=== PATIENT | female | born 1960 | race Caucasian/White ===

== ENCOUNTER 2017-08-21 01:50 | Emergency (ER) | payer BC, MEDICAID ==
[~2017-08-21] VITALS: Ht 157.5 cm; Wt 83.0 kg
[2017-08-21] MEDS ORDERED: ONDANSETRON HCL/PF 4 MG/2 ML VIAL ONE (02:24)
[2017-08-21] MEDS ORDERED: MORPHINE SULFATE INJ 4 MG/ML DISP.SYRIN ONE (02:24)
[2017-08-21 02:29] LABS: BASOPHILS # (AUTO) 0.2 /CMM (0.0-0.2); BASOPHILS % (AUTO) 1.1 % (0.0-2.0); EOSINOPHILS % (AUTO) 0.3 % (0.0-6.0); HEMATOCRIT 38 % (33-45); HEMOGLOBIN 13.2 g/dL (11.5-14.8); LYMPHOCYTES # (AUTO) 3.1 /CMM (0.8-4.8); LYMPHOCYTES % (AUTO) 17.9 % (20.0-44.0); MEAN CORPUSCULAR HGB CONC 34 g/dl (31.0-36.0); MEAN CORPUSCULAR VOLUME 85 fL (82-100); MONOCYTES # (AUTO) 1.1 /CMM (0.1-1.30); MONOCYTES % (AUTO) 6.1 % (2.0-12.0); NEUTROPHILS # (AUTO) 13.1 /CMM (1.8-8.9); NEUTROPHILS % (AUTO) 74.6 % (43.0-81.0); PLATELET COUNT (AUTO) 112 /CMM (150-450); WHITE BLOOD COUNT (AUTO) 17.5 K/uL (4.3-11.0)
[2017-08-21] MEDS ORDERED: ONDANSETRON HCL/PF 4 MG/2 ML VIAL IVP ONE (02:30)
[2017-08-21] MEDS ORDERED: IV NS 0.9% 1,000 ML BAG IV ONE (02:30)
[2017-08-21] MEDS ORDERED: MORPHINE SULFATE INJ 2 MG/ML DISP.SYRIN IV ONE (02:30)
[2017-08-21 02:38] LABS: CALCIUM, SERUM 9.6 mg/dL (8.5-10.1); CARBON DIOXIDE 20 mmol/L (21-32); CHLORIDE 99 mmol/L (98-107); CREATININE 1.7 mg/dL (0.6-1.3); GLUCOSE 253 mg/dL (74-106); POTASSIUM 3.8 mmol/L (3.5-5.1); SODIUM SERUM 136 mmol/L (136-145); UREA NITROGEN, BLOOD 32 mg/dL (7-18)
[2017-08-21 02:40] LABS: INR 0.96 (0.87-1.13)
[2017-08-21 02:43] LABS: ALANINE AMINOTRANSFERASE 52 U/L (12-78); ALBUMIN 4.4 g/dL (3.4-5.0); ALKALINE PHOSPHATASE 117 U/L (46-116); ASPARTATE AMINOTRANSFERASE 32 U/L (15-37); BILIRUBIN,DIRECT 0.1 mg/dL (0.0-0.2); BILIRUBIN,TOTAL 0.3 mg/dL (0.2-1.0); LIPASE 165 U/L (73-393); TOTAL PROTEIN, SERUM 8.2 g/dL (6.4-8.2)
[2017-08-21 03:01] LABS: TROPONIN I < 0.017 ng/mL (0.00-0.056)
--- NOTE | 2017-08-21 03:59 | NUR ---
URINE COLLECTED. CALLED LAB FOR TRAVEL SALES CONSULTANT.
[2017-08-21 04:12] LABS: APPEARANCE,URINE CLEAR (CLEAR); BILIRUBIN,URINE 1+ (NEGATIVE); BLOOD, URINE NEGATIVE Ery/uL (NEGATIVE); COLOR,URINE YELLOW (YELLOW); KETONES,URINE NEGATIVE (NEGATIVE); LEUKOCYTE ESTERASE ,URINE TRACE (NEGATIVE); NITRITE, URINE NEGATIVE (NEGATIVE); PROTEIN,URINE 1+ mg/dl (NEGATIVE); UGLUCOSE NEGATIVE (NEGATIVE); UROBILINOGEN,URINE 0.2 EU/dL (0.2)
--- NOTE | 2017-08-21 04:12 | NUR ---
Patient is resting comfortably in bed with eyes closed. Easily aroused. VSS
[2017-08-21 04:18] LABS: BACTERIA,URINE Many /HPF (None Seen); HYALINE CASTS, URINE Few /LPF (None Seen); RBC,URINE 0-2 /HPF (0-2); SQUAMOUS EPITHELIAL CELL,UR Moderate /HPF (None Seen); WBC,URINE 21-50 /HPF (0-3)
--- NOTE | 2017-08-21 05:49 | NUR ---
IV removed. Catheter intact and site benign. Pressure and 4x4 applied to site. No bleeding noted. Patient discharged to home in stable condition. Written and verbal after care instructions given. Patient verbalizes understanding of instruction. ambulatory with a steady gait. instructed pt not drive. pt verbalize understanding.
[2017-08-21 05:54] VITALS: BP 94/65
== END 2017-08-21 05:54 | disposition home or self-care (01) ==
LOC: ER 01:54
DX: K80.80 Other cholelithiasis without obstruction (principal); I10 Essential (primary) hypertension; E11.9 Type 2 diabetes mellitus without complications; Z88.6 Allergy status to analgesic agent
CPT/HCPCS: 36415; 71045-TC; 80048-TC; 80076-TC; 81000-TC; 83690-TC; 84484-TC; 85025-TC; 85730-TC; 87086-TC; A4606; J2270; J2405; J7030; Z7610

== ENCOUNTER 2018-05-28 21:32 | Emergency (ER) | payer BC ==
[~2018-05-28] VITALS: Ht 157.5 cm; Wt 88.5 kg
--- NOTE | 2018-05-28 22:00 | NUR ---
PT BIBSELF C/O COUGH X1 DAY. PT STATES SHE HAS BEEN FEELING WEAK X1 WEEK. DENIES SOB, CHEST PAIN, FEVER. PT AAOX4. RESPIRATIONS EVEN AND UNLABORED. SKIN WARM AND INTACT NO ACUTE DISTRESS NOTED
[2018-05-28] MEDS ORDERED: ACETAMINOPHEN 325 MG TABLET ONE (23:22)
[2018-05-28] MEDS ORDERED: ACETAMINOPHEN 650 MG/20.3 ML UDC PO ONE (23:30)
--- NOTE | 2018-05-29 00:25 | NUR ---
Patient discharged to home in stable condition. Written and verbal after care instructions given. Patient verbalizes understanding of instruction. Pt ambulatory with a steady gait
[2018-05-29 00:30] VITALS: BP 100/67
== END 2018-05-29 00:31 | disposition home or self-care (01) ==
LOC: ER 21:35
DX: B34.9 Viral infection, unspecified (principal); I10 Essential (primary) hypertension; E11.9 Type 2 diabetes mellitus without complications; Z90.710 Acquired absence of both cervix and uterus; Z90.89 Acquired absence of other organs; Z98.890 Other specified postprocedural states; Z90.12 Acquired absence of left breast and nipple; Z85.3 Personal history of malignant neoplasm of breast; Z88.6 Allergy status to analgesic agent
CPT/HCPCS: 87400

== ENCOUNTER 2020-02-25 15:05 | Inpatient (IN) | payer MEDICARE, BC, OTHER ==
[~2020-02-25] VITALS: Ht 157.5 cm; Wt 94.8 kg
--- NOTE | 2020-02-25 15:09 | NUR ---
[id number], from home, c/o left flank pain since this morning, non radiating, 03/03 PS. to ER bed 09, hooked to secured entrance monitor, BP cuff and POX, changed to hosp gown, warm blanket provided, patient AAO x 4, breathing even and unlabored, NAD noted. awaiting MD wasserman.
--- NOTE | 2020-02-25 15:18 | NUR ---
DR LEIGH AT BEDSIDE
[2020-02-25] MEDS ORDERED: ONDANSETRON HCL/PF 4 MG/2 ML VIAL IVP ONE (15:30)
[2020-02-25] MEDS ORDERED: MORPHINE SULFATE INJ 2 MG/ML DISP.SYRIN IV ONE (15:30)
[2020-02-25] MEDS ORDERED: IV NS 0.9% 500 ML BAG IV ONE (15:30)
[2020-02-25] MEDS ORDERED: ONDANSETRON HCL/PF 4 MG/2 ML VIAL ONE (15:57)
[2020-02-25] MEDS ORDERED: MORPHINE SULFATE INJ 4 MG/ML DISP.SYRIN ONE (15:57)
[2020-02-25] MEDS ORDERED: HYDROMORPHONE 1 MG/1 ML DISP.SYRIN ONE (16:08)
[2020-02-25 16:17] LABS: BASOPHILS # (AUTO) 0.1 /CMM (0.0-0.2); BASOPHILS % (AUTO) 0.9 % (0.0-2.0); EOSINOPHILS % (AUTO) 0.4 % (0.0-6.0); HEMATOCRIT 40 % (33-45); HEMOGLOBIN 13.1 g/dL (11.5-14.8); LYMPHOCYTES # (AUTO) 1.7 /CMM (0.8-4.8); LYMPHOCYTES % (AUTO) 23.9 % (20.0-44.0); MEAN CORPUSCULAR HGB CONC 33 g/dl (31.0-36.0); MEAN CORPUSCULAR VOLUME 97 fL (82-100); MONOCYTES # (AUTO) 0.5 /CMM (0.1-1.30); MONOCYTES % (AUTO) 6.6 % (2.0-12.0); NEUTROPHILS # (AUTO) 4.9 /CMM (1.8-8.9); NEUTROPHILS % (AUTO) 68.2 % (43.0-81.0); PLATELET COUNT (AUTO) 392 /CMM (150-450); WHITE BLOOD COUNT (AUTO) 7.3 K/uL (4.3-11.0)
[2020-02-25] MEDS ORDERED: HYDROMORPHONE 1 MG/1 ML DISP.SYRIN IV ONE (16:30)
[2020-02-25 16:36] LABS: ALBUMIN 1.9 g/dL (3.4-5.0); BILIRUBIN,DIRECT 0.2 mg/dL (0.0-0.2); BILIRUBIN,TOTAL 0.4 mg/dL (0.2-1.0); CALCIUM, SERUM 7.6 mg/dL (8.5-10.1); CREATININE 0.9 mg/dL (0.6-1.3); TOTAL PROTEIN, SERUM 6.4 g/dL (6.4-8.2)
[2020-02-25 16:37] LABS: POTASSIUM 2.4 mmol/L (3.5-5.1)
[2020-02-25] MEDS ORDERED: OMEG1CAP PO (16:42)
[2020-02-25] MEDS ORDERED: FURO-145 PO (16:42)
[2020-02-25] MEDS ORDERED: CLOP75TA15 PO (16:42)
[2020-02-25] MEDS ORDERED: LEVE500T9 PO (16:42)
[2020-02-25] MEDS ORDERED: VENL37.55 PO (16:42)
[2020-02-25] MEDS ORDERED: INSU100I26 SQ (16:42)
[2020-02-25] MEDS ORDERED: ATOR20TA PO (16:42)
[2020-02-25] MEDS ORDERED: INSU3INS8 SQ (16:42)
[2020-02-25] MEDS ORDERED: PANT40TA2 PO (16:42)
[2020-02-25] MEDS ORDERED: METF-442 PO (16:42)
[2020-02-25] MEDS ORDERED: DULA1.5P SQ (16:42)
[2020-02-25] MEDS ORDERED: CALC-17 PO (16:42)
--- NOTE | 2020-02-25 16:48 | NUR ---
PATIENT NOT ABLE TO PROVIDE URINE SAMPLE. MD DUARTE
[2020-02-25] MEDS ORDERED: POTASSIUM CHLORIDE 20 MEQ TAB.PRT.SR PO ONE ×2 (17:00→17:13)
--- NOTE | 2020-02-25 17:23 | NUR ---
PATIENT NOT ABLE TO PROVIDE URINE SAMPLE. OFFERED STRAIGHT CATHETER, REFUSED. MD AWARE
--- NOTE | 2020-02-25 18:41 | NUR ---
ABLE TO PROVIDE URINE SAMPLE. SENT SAMPLE TO LAB
[2020-02-25 18:53] LABS: APPEARANCE,URINE Cloudy (CLEAR); BILIRUBIN,URINE MODERATE (NEGATIVE); BLOOD, URINE Negative Ery/uL (NEGATIVE); KETONES,URINE Trace (NEGATIVE); LEUKOCYTE ESTERASE ,URINE Large (NEGATIVE); NITRITE, URINE Negative (NEGATIVE); PROTEIN,URINE Trace mg/dl (NEGATIVE); UGLUCOSE Negative (NEGATIVE); UROBILINOGEN,URINE 0.2 EU/dL (0.2)
[2020-02-25 18:54] LABS: COLOR,URINE DARK YELLOW (YELLOW)
[2020-02-25 19:03] LABS: BACTERIA,URINE Moderate /HPF (None Seen); SQUAMOUS EPITHELIAL CELL,UR Many /HPF (None Seen)
[2020-02-25 19:04] LABS: RBC,URINE 0-2 /HPF (0-2)
--- NOTE | 2020-02-25 19:14 | NUR ---
REPORT GIVEN TO ANGI SHIN FOR RANGEL
[2020-02-25] MEDS ORDERED: IV NS 0.9% 1,000 ML BAG IV ONE (19:30)
--- NOTE | 2020-02-25 19:43 | NUR ---
PT AAOX4, RESPIRATIONS EVEN AND UNLABORED ON RA W/ NAD NOTED. PT CONNECTED TO THE FLOUR BROKER AND POX. CALL LIGHT WITHIN REACH. PT HAS NO MEDICAL COMPLAINTS AT THIS TIME.
[2020-02-25] MEDS ORDERED: CEFTRIAXONE 1GM BAG (ER ONLY) 50 ML IV ONE (19:59)
[2020-02-25] MEDS ORDERED: CEFTRIAXONE 1GM BAG (ER ONLY) 1 GM/50 ML PIGGYBACK IV ONE (20:00)
--- NOTE | 2020-02-25 21:15 | NUR ---
Mckenzie cristina in [facility] - 02/26/20 at 0033 by SUMMERTALORRI PT STATES THAT PREVIOUS DOCTOR WAS DR Thierry GONZALES, HOWEVER DOES NOT RECALL WHO HER CURRENT DOCTOR IS.
--- NOTE | 2020-02-25 21:26 | NUR ---
CALLED LAB FOR COVID SWAB
[2020-02-25] MEDS ORDERED: ONDANSETRON HCL/PF 4 MG/2 ML VIAL IVP PRN (21:30)
[2020-02-25] MEDS ORDERED: MAG HYDROX/AL HYDROX/SIMETH 30 ML UDC PO PRN (21:30)
[2020-02-25] MEDS ORDERED: ZOLPIDEM TARTRATE 5 MG TABLET PO PRN (21:30)
[2020-02-25] MEDS ORDERED: Z GUARD REMEDY 2 OZ OINT TP PRN (21:30)
[2020-02-25] MEDS ORDERED: ACETAMINOPHEN 325 MG TABLET PO PRN (21:30)
[2020-02-25] MEDS ORDERED: MAGNESIUM HYDROXIDE 30 ML UDC PO PRN (21:30)
[2020-02-25] MEDS ORDERED: HYDROCODONE/APAP 5/325MG TABLET PO PRN (21:30)
--- NOTE | 2020-02-25 21:30 | NUR ---
COVID SWAB SENT TO LAB
--- NOTE | 2020-02-25 22:38 | NUR ---
REPORT GIVEN TO ALEIDA BURR FOR RANGEL
[2020-02-25 23:10] VITALS: BP 108/75
[2020-02-25 23:15] VITALS: BP 108/75
--- NOTE | 2020-02-25 23:21 | NUR ---
Patient transferred to room in stable condition
--- NOTE | 2020-02-26 | NUR ---
ADMISSION NOTES: RECEIVED REPORT FORM QUE SHIN. PT BROUGHT TO THE UNIT VIA GURNEY, ARRIVED AT 2300. PT A/O X3, ON 12L OXYGEN VIA NC, RESPIRATIONS EVEN AND UNLABORED. ASSISTED TO BED, KEPT COMFORTABLE. ORIENTED TO UNIT POLICY AND HOURLY ROUNDING, USE OF CALL LIGHT SYSTEM. ADMISSION QUESTION ANSWERED BY PT HERSELF. VERIFIED ALL MEDICATION TAKEN AT HOME. SKIN ASSESSMENT PERFORMED, NOTED LEFT KNEE WOUND S/P FALL A WEEK AGO, AND HANGING TOENAIL ON LEFT 5TH DIGIT, S/P HITTING A WHEELCHAIR. PT HAS RIGHT CW PORTACATH, BRISK BLOOD RETURN NOTED, ABLE TO FLUSH WELL WITH 10CC NS, CURRENTLY RECEIVING NS BOLUS FROM ER ABOUT 500ML. VS TAKEN AND RECORDED. PT DENIES ANY PAIN AT THIS TIME, MADE AWARE OF PAIN MEDICATION AVAILABLE. PT ADMITTED FOR UTI, HYPOKALEMIA. PT MED HX OF BREAST CA, METS TO BRAIN, S/P CHEMO THERAPY 4WEEKS AGO, JUST DC FROM [facility], LEFT MASTECTOMY NOTED, WITH SPECIAL PRECAUTION POSTED ON PT'S ROOM REGARDING BP/IV AND BLOOD DRAW. SAFETY PRECAUTIONS FOR FALL INITIATED, CALL LIGHT IN REACH, WILL COTNINUE MONITORING PT. Addendum: 02/26/20 at 0424 by OPAL RODRIGUEZ RN correction of entry: on 2l of oxygen via nc
--- NOTE | 2020-02-26 00:15 | NUR ---
rn notes/portacath: right cw port-a-cath in placed, dressing c/d/i, no active bleeding noted, surrounding area clean. no s/s of iv infiltration noted, no s/s of infection noted.
--- NOTE | 2020-02-26 00:18 | NUR ---
RN NOTES/PAGED EPIC: PAGED EPIC HOSPITALIST IN CALL, REGARDING PT, HAS RIGHT CW PORTACATH, ALSO USES CPAP AT HOME, BROUGHT OWN CPAP, NEEDS TO BE CHECK FIRST BY BIOMED PER PROTOCOL, AND SPOKE WITH RT, THEY SAID NEEDS TO BE CHECK BY BIOMED BEFORE USE, WILL JUST PROVIDE HOSPITAL CPAP WHILE PT IN THE HOSPITAL. ALSO, INFORMED ABOUT WOUND ON LEFT PINKY NAIL HANGING, RELAYED TO AMOS LUBRICATION EQUIPMENT SERVICER, PER LUBRICATION EQUIPMENT SERVICER TELEPHONE ORDER RECEIVED "OKAY TO USE PORTACATH, PULMO CONSULT AND RT CONSULT, PODIATRY CONSULT". ORDER READ BACK VERIFIED AND CARRIED OUT.
--- NOTE | 2020-02-26 00:20 | NUR ---
rn notes: clarified with psychiatric hospitalist regarding port-a cath use, per md goff okay to use port-a cath for medication and fluid, blood draw. order read back verified and carried out.
--- NOTE | 2020-02-26 00:27 | NUR ---
RN NOTES: NOTIFIED EPIC MD ORNAMENTAL METAL WORKER REGARDING VTE SCORE 5. NEEDS ORDERS FOR CHEMICAL PROPHYLAXIS.
--- NOTE | 2020-02-26 00:30 | NUR ---
rn notes/refusal for flu vaccine: pt refused flu vaccine, stated she needs to ask her oncologist if safe for her to get the flu vaccine since she's on chemotherapy. education provided to pt about risk and benefits of flu vaccine.
--- NOTE | 2020-02-26 00:35 | NUR ---
rn notes: able to take photo for left knee open wound, but unable to take photo/unable to assess pt's left pinky/left 5th digit, pt claimed she had a toenail hanging due to accidentally hitting her feet on a wheel chair.
[2020-02-26] MEDS: BLOOD SUGAR DIAGNOSTIC 1 EACH STRIP IN SCH ×7 (00:45→21:31)
[2020-02-26] MEDS: INSULIN REGULAR, HUMAN 100 UNIT/ML 3 ML VIAL SQ PRN ×3 (00:46→06:22)
--- NOTE | 2020-02-26 00:47 | NUR ---
accu check 67: blood sugar check performed and result is 67, provided pt with 2boxes of orange juice. will repeat sugar check in 15mins.
[2020-02-26] MEDS ORDERED: DEXTROSE 50%-WATER 50 ML DISP.SYRIN IV PRN (01:00)
--- NOTE | 2020-02-26 01:00 | NUR ---
rn notes: rt at bed side, set up cpap. pt currently eating egg sand which and drinking orange juice.
--- NOTE | 2020-02-26 01:25 | NUR ---
repeat accu check post meal: blood glucose check performed and result is 80. pt stated she cant eat anymore but will try finishing her orange juice.
--- NOTE | 2020-02-26 02:08 | NUR ---
1hr post meal axccu check: blood glucose check performed and result is 123. no insulin given per sliding scale. pt awake, ready to sleep, rt at bed side, preparing cpap.
--- NOTE | 2020-02-26 02:22 | NUR ---
rn notes: pt insisted on taking her keppra, she stated that she wasnt able to take the other dose from yesterday. she claimed she's taking keppra q12hrs. notified md money room teller. awaiting for call back.
--- NOTE | 2020-02-26 02:38 | NUR ---
rn notes/epic: received telephone order from hospitalist denver to give one time order for keppra 500mg tab now. order read back verified and carried out.
[2020-02-26] MEDS ORDERED: LEVETIRACETAM (250 MG) 250 MG TABLET PO ONE (03:00)
--- NOTE | 2020-02-26 05:47 | NUR ---
rn notes: tried getting blood from port-a-cath for am labs order, however obnly able to obtain 2ml of blood and unfortunately it clot right away. explained to pt, informed drafter mechanical pt is hard to stick and there is a precaution on left arm, so he can only use right arm for blood draw.
--- NOTE | 2020-02-26 06:23 | NUR ---
accu check 109: blood glucose check performed and result is 109. no insulin coverage given per sliding scale. will continue monitoring pt.
--- NOTE | 2020-02-26 06:53 | NUR ---
end of shift report: pt remains a/o x3, on 1l oxygen via nc, able to use cpap last night. rcw port-a-cath remains in placed, brisk blood return noted, able to flush well with 10cc ns, dressing c/d/i, no s/s of iv infiltration noted, placed on hl. prn dilaudid administered for c/o flank pain. accu check performed. remains afebrile. plan of care: pulmo consult, podiatry consult, cont iv atb, monitor glucose level. safety precautions for fall remains engaged, call light in reach, will endorse to day rn for continuity of care.
--- NOTE | 2020-02-26 06:54 | NUR ---
end of shift report: pt remains a/o x3, on 1l oxygen via nc, able to use cpap last night. rcw port-a-cath remains in placed, brisk blood return noted, able to flush well with 10cc ns, dressing c/d/i, no s/s of iv infiltration noted, placed on hl. no prn medication administered, pt denies any pain at this time. . accu check performed. remains afebrile. plan of care: pulmo consult, podiatry consult, cont iv atb, monitor glucose level. safety precautions for fall remains engaged, call light in reach, will endorse to day rn for continuity of care.
[2020-02-26 07:11] LABS: BASOPHILS % (AUTO) 0.5 % (0.0-2.0); EOSINOPHILS % (AUTO) 0.6 % (0.0-6.0); HEMATOCRIT 38 % (33-45); HEMOGLOBIN 12.3 g/dL (11.5-14.8); LYMPHOCYTES # (AUTO) 1.4 /CMM (0.8-4.8); LYMPHOCYTES % (AUTO) 23.5 % (20.0-44.0); MEAN CORPUSCULAR HGB CONC 32 g/dl (31.0-36.0); MEAN CORPUSCULAR VOLUME 100 fL (82-100); MONOCYTES # (AUTO) 0.3 /CMM (0.1-1.30); MONOCYTES % (AUTO) 5.3 % (2.0-12.0); NEUTROPHILS # (AUTO) 4.2 /CMM (1.8-8.9); NEUTROPHILS % (AUTO) 70.1 % (43.0-81.0); PLATELET COUNT (AUTO) 338 /CMM (150-450)
--- NOTE | 2020-02-26 07:30 | NUR ---
RN OPENING NOTE RECEIVED PT IN BED. AWAKE ALERT AND ORINETED X 4. NO CARDIAC OR RESPIRATORY DISTRESS NOTED. NO SOB NOTED. SATURATING WELL ON ROOM AIR. BREATHING EVEN AND UNLABORED. IV ACCESS NOTED ON R CHEST PERMACATH. INTACT AND AND PATENT WITH GLOD BLOOD RETURN. SAFETY PRECAUTIONS IN PLACE. BED LOCKED AND IN LOW POSITION. SIDE RAILS UP X2. BED ALARM ON. CALL LIGHT WITHIN REACH.
[2020-02-26 08:00] VITALS: BP 103/58
[2020-02-26] MEDS: HYDROMORPHONE INJ 2 MG/ML DISP.SYRIN IV PRN ×3 (08:02→16:12)
[2020-02-26] MEDS: CALCIUM CARB 600MG /VIT D 1 EACH TABLET PO SCH (08:25)
[2020-02-26] MEDS: METFORMIN 500 MG TABLET PO SCH ×2 (08:25→16:27)
[2020-02-26] MEDS: FUROSEMIDE 20 MG TABLET PO SCH ×2 (08:25→16:27)
[2020-02-26] MEDS: PANTOPRAZOLE 40 MG TABLET.DR PO SCH (08:25)
[2020-02-26] MEDS: VENLAFAXINE XR 37.5 MG CAP.SR.24H PO SCH (08:25)
[2020-02-26] MEDS: CLOPIDOGREL BISULFATE 75 MG TABLET PO SCH (08:25)
[2020-02-26] MEDS: NYSTATIN (PYXIS) 500,000 UNIT/5 ML ORAL.SUSP PO SCH ×3 (08:25→16:27)
[2020-02-26 08:33] LABS: ALBUMIN 1.7 g/dL (3.4-5.0); BILIRUBIN,TOTAL 0.3 mg/dL (0.2-1.0); CALCIUM, SERUM 7.3 mg/dL (8.5-10.1)
[2020-02-26] MEDS: INSULIN NPH/REG 70/30 MIX INJ 100 UNIT/ML CARTRIDGE SQ SCH ×4 (08:34→21:35)
[2020-02-26] MEDS: INSULIN GLARGINE, 100 UNIT/ML CARTRIDGE SQ SCH ×2 (08:36→16:33)
[2020-02-26 08:54] LABS: MAGNESIUM 0.7 mg/dL (1.8-2.4); POTASSIUM 2.8 mmol/L (3.5-5.1)
[2020-02-26] MEDS ORDERED: PANTOPRAZOLE 40 MG VIAL IV SCH (09:00)
[2020-02-26] MEDS ORDERED: Medication Not On Formulary EA (Omega-3 Fatty Acids/Fish Oil (Fish Oil 1,000 Mg Capsule) PO SCH (09:00)
--- NOTE | 2020-02-26 09:30 | NUR ---
CRITICAL LAB DOE MAN NP MADE AWARE OF PTS K+ LEVELS OF 2.8 AND MAG LEVELS OF 0.7. PER DOE SHE WILL LOOK INTO IT.
[2020-02-26] MEDS ORDERED: POTASSIUM CHLORIDE 20 MEQ TAB.PRT.SR PO ONE (11:30)
[2020-02-26] MEDS ORDERED: MAGNESIUM OXIDE 400 MG TABLET PO ONE (11:30)
[2020-02-26] MEDS: LEVETIRACETAM (250 MG) 250 MG TABLET PO SCH ×2 (12:08→21:26)
--- NOTE | 2020-02-26 16:00 | NUR ---
VTE VTE SCORE IS 5. DVT PUMP ORDERED. PT ALREADY ON PLAVIX.
--- NOTE | 2020-02-26 18:19 | NUR ---
RN CLOSING NOTES PT IN BED. AWAKE ALERT AND ORIENTED X 4. NO CARDIAC OR RESPIRATORY DISTRESS NOTED. NO SOB NOTED. SATURATING WELL ON ROOM AIR. BREATHING EVEN AND UNLABORED. IV ACCESS NOTED ON R CHEST PERMACATH. INTACT AND AND PATENT WITH GOOD BLOOD RETURN. ALL NEEDS MET AND ATTENDED. ALL DUE MEDS ADMINISTERED. NO ASE NOTED. SAFETY PRECAUTIONS IN PLACE. BED LOCKED AND IN LOW POSITION. SIDE RAILS UP X2. BED ALARM ON. CALL LIGHT WITHIN REACH.
--- NOTE | 2020-02-26 19:57 | NUR ---
MS/RN OPENING NOTE Patient asleep in bed, A/O x4, ambulatory with assist. Face symmetrical, tongue midline. No tracheal deviation. No JVD. CRP <3seconds. Breathing even, clear, unlabored on room air. No signs of acute distress or SOB. Right chest permacath, clean and intact. Bruise noted on right upper arm. Wound to left knee s/p fall. Wound noted to left 5th digit toe. Abdomen round, soft, non-tender. BS active. Patient is continent via BRP. Bed in low position, wheels locked, side rails up x2, call light within reach.
[2020-02-26 20:00] VITALS: BP 105/63
[2020-02-26] MEDS ORDERED: CEFTRIAXONE 1 G in IV D5W 50 ML IV SCH (21:00)
--- NOTE | 2020-02-26 21:37 | NUR ---
MS/RN NOTE Held novolin d/t patient has poor PO intake. Blood sugar 75. Will continue to monitor.
[2020-02-26] MEDS ORDERED: CEFTRIAXONE 1 G VIAL ONE (21:57)
[2020-02-26] MEDS ORDERED: ATORVASTATIN 10 MG TABLET PO SCH (22:00)
[2020-02-26 22:49] VITALS: BP 105/63
[2020-02-27] MEDS: BLOOD SUGAR DIAGNOSTIC 1 EACH STRIP IN SCH ×2 (06:34→11:37)
[2020-02-27] MEDS: PANTOPRAZOLE 40 MG TABLET.DR PO SCH (06:36)
[2020-02-27] MEDS: INSULIN NPH/REG 70/30 MIX INJ 100 UNIT/ML CARTRIDGE SQ SCH ×2 (06:37→12:00)
--- NOTE | 2020-02-27 07:03 | NUR ---
MS/RN CLOSING NOTE Patient asleep in bed, A/O x4, ambulatory with assist. Breathing even, clear, unlabored on room air. No signs of acute distress or SOB. Right chest permacath, clean and intact. Bruise noted on right upper arm. Patient is continent via BRP. Patient did not void during the night, patient stated she usually only voids in the day time. Blood sugar reading 64, gave orange juice, rechecked at 83. Held novolin d/t borderline low blood sugar and poor feeding. Bed in low position, wheels locked, side rails up x2, call light within reach.
[2020-02-27 07:35] LABS: BASOPHILS % (AUTO) 0.4 % (0.0-2.0); EOSINOPHILS % (AUTO) 0.6 % (0.0-6.0); HEMATOCRIT 36 % (33-45); HEMOGLOBIN 11.8 g/dL (11.5-14.8); LYMPHOCYTES % (AUTO) 31.7 % (20.0-44.0); MEAN CORPUSCULAR HGB CONC 33 g/dl (31.0-36.0); MEAN CORPUSCULAR VOLUME 98 fL (82-100); MONOCYTES # (AUTO) 0.5 /CMM (0.1-1.30); MONOCYTES % (AUTO) 7.3 % (2.0-12.0); NEUTROPHILS # (AUTO) 3.8 /CMM (1.8-8.9); PLATELET COUNT (AUTO) 299 /CMM (150-450); RED BLOOD CELL COUNT(AUTO) 3.64 MIL/uL (4.0-5.2); WHITE BLOOD COUNT (AUTO) 6.4 K/uL (4.3-11.0)
--- NOTE | 2020-02-27 07:44 | NUR ---
RN OPEN NOTES PATIENT IS SLEEPING IN BED WITH NO SIGNS OF DISTRESS IN ROOM AIR. R CHEST PERMCATH. NO COMPLAIN OF PAIN AT THIS MOMENT. ENDORSED BY THE STONE ENGRAVER NURSE THAT PATIENT LOST HER GLASSES POSSIBLY THREW HER GLASSES AWAY WHEN TAKING THE FOOD TRAY AWAY. SAFETY MEASURES ARE APPLIED, BED IS LOW AND LOCKED. SIDE RAILS UP X 2 FOR SAFETY. CALL LIGHT WITHIN REACH. WILL CONTINUE TO MONITOR.
[2020-02-27 07:46] LABS: CALCIUM, SERUM 7.9 mg/dL (8.5-10.1); CREATININE 0.8 mg/dL (0.6-1.3); PHOSPHORUS 2.8 mg/dL (2.5-4.9); POTASSIUM 3.1 mmol/L (3.5-5.1)
[2020-02-27 08:01] LABS: MAGNESIUM 0.8 mg/dL (1.8-2.4)
[2020-02-27] MEDS: FUROSEMIDE 20 MG TABLET PO SCH (09:00)
[2020-02-27] MEDS: INSULIN GLARGINE, 100 UNIT/ML CARTRIDGE SQ SCH (09:00)
[2020-02-27] MEDS: METFORMIN 500 MG TABLET PO SCH (09:00)
[2020-02-27] MEDS: HYDROMORPHONE INJ 2 MG/ML DISP.SYRIN IV PRN (09:18)
[2020-02-27] MEDS: LEVETIRACETAM (250 MG) 250 MG TABLET PO SCH (09:22)
[2020-02-27] MEDS: VENLAFAXINE XR 37.5 MG CAP.SR.24H PO SCH (09:22)
[2020-02-27] MEDS: NYSTATIN (PYXIS) 500,000 UNIT/5 ML ORAL.SUSP PO SCH ×2 (09:22→12:50)
[2020-02-27] MEDS: CLOPIDOGREL BISULFATE 75 MG TABLET PO SCH (09:22)
[2020-02-27] MEDS: CALCIUM CARB 600MG /VIT D 1 EACH TABLET PO SCH (09:23)
[2020-02-27] MEDS ORDERED: POTASSIUM CHLORIDE 20 MEQ TAB.PRT.SR PO ONE (09:30)
[2020-02-27] MEDS: Magnesium 1GM/D5W 100ML PREMIX 100 ML IV SCH ×3 (09:32→12:44)
[2020-02-27] MEDS ORDERED: SULF1TAB48 PO (09:38)
--- NOTE | 2020-02-27 09:38 | NUR ---
WOUND CARE CONSULT: PT PRESENTS WITH LEFT KNEE HEALED AREA. LEFT 5TH TOENAIL INTACT AT THIS TIME, NO DRAINAGE OR ERYTHEMA NOTED. PT IS INDEPENDENT WITH BED MOBILITY AND IS CONTINENT AT THIS TIME WITH CURRENT NEHA SCORE OF 21.
--- NOTE | 2020-02-27 09:43 | NUR ---
HELD LASIX PATIENT'S BP IS 109/66 HR 111 SPO2 96%
--- NOTE | 2020-02-27 10:06 | NUR ---
HELD LANTUS AND METFORMIN LOW BLOOD SUGAR.
--- NOTE | 2020-02-27 11:49 | NUR ---
DID NOT ADMINISTER INSULIN BS 125 PATIENT NOT EATING. WILL CONTINUE TO MONITOR.
[2020-02-27] MEDS ORDERED: MAGNESIUM OXIDE 400 MG TABLET PO ONE (12:30)
--- NOTE | 2020-02-27 16:55 | NUR ---
DISCHARGE NOTES PATIENT IS STABLE AND IMPROVED, REMAINED AFEBRILE NO COMPLAIN OF PAIN AND NO SIGNS OF DISTRESS IN ROOM AIR. DISCHARGE INSTRUCTIONS WERE GIVEN TO PATIENT AND VERBALIZED UNDERSTANDING. BELONGING LIST WAS COMPLETED AND SIGNED.R UA CENTRAL LINE PORTAL WAS REMOVED BY CHARGE NURSE JUAN WITH NO SIGNS OF BLEEDING AND COVERED. PATIENT LEFT VIA WHEELCHAIR ACCOMPANIED BY CORI ABDI TO THE LOBBY. GETTING PICKED UP BY DAUGHTER.
[2020-02-28] MEDS ORDERED: PANTOPRAZOLE 40 MG TABLET.DR PO SCH (07:30)
== END 2020-02-27 17:00 | disposition home or self-care (01) | DRG 689 ==
LOC: ER 15:09 → MED 22:52
PROVIDERS: ADMIT Nurse Practitioner Acute Care; ATTEND Nurse Practitioner Acute Care
DX: N39.0 Urinary tract infection, site not specified (principal); E43 Unspecified severe protein-calorie malnutrition; J98.11 Atelectasis; C79.9 Secondary malignant neoplasm of unspecified site; E87.6 Hypokalemia; C50.919 Malignant neoplasm of unspecified site of unspecified female breast; E83.51 Hypocalcemia; R53.1 Weakness; E11.9 Type 2 diabetes mellitus without complications; R16.0 Hepatomegaly, not elsewhere classified; E88.09 Other disorders of plasma-protein metabolism, not elsewhere classified; K76.0 Fatty (change of) liver, not elsewhere classified; Z90.12 Acquired absence of left breast and nipple; Z85.3 Personal history of malignant neoplasm of breast; Z68.38 Body mass index [BMI] 38.0-38.9, adult; G47.33 Obstructive sleep apnea (adult) (pediatric); E83.42 Hypomagnesemia; Z79.84 Long term (current) use of oral hypoglycemic drugs; Z92.21 Personal history of antineoplastic chemotherapy
CPT/HCPCS: 36415; 71045-TC; 80048-TC; 80053-TC; 80076-TC; 81000-TC; 82962-TC; 83690-TC; 83735-TC; 84100-TC; 85025-TC; 87081-TC; 87086-TC; 97116-TC; 97530-TC; C9113; C9803-CS; G0378; J0696; J1170; J1815; J2270; J2405; J3475; J7030; J7040; J7060

== ENCOUNTER 2020-03-10 16:11 | Inpatient (IN) | payer MEDICARE, BC, OTHER ==
[~2020-03-10] VITALS: Ht 157.5 cm; Wt 95.3 kg
[~2020-03-10 16:11] MED LIST: ATOR20TA PO; CALC-17 PO; CLOP75TA15 PO; DULA1.5P SQ; FURO-145 PO; LEVE500T9 PO; METF-442 PO; OMEG1CAP PO; PANT40TA2 PO; SULF1TAB48 PO; VENL37.55 PO
--- NOTE | 2020-03-10 16:23 | NUR ---
[id number] from home c/p diffuse abdominal pain x 7 days. to ER bed 11, hooked to front desk monitor, bp cuff and pox, changed to hosp gown, warm blanket provided, patient aao X 4, breathing even and unlabored, awaiting MD wasserman
--- NOTE | 2020-03-10 16:27 | NUR ---
ZIGZAG STITCHER DEGRASSE AT BEDSIDE FOR EVAL
[2020-03-10] MEDS ORDERED: ONDANSETRON HCL/PF 4 MG/2 ML VIAL IVP ONE (16:30)
[2020-03-10] MEDS ORDERED: IV NS 0.9% 1,000 ML BAG IV ONE (16:30)
[2020-03-10] MEDS ORDERED: HYDROMORPHONE INJ 2 MG/ML DISP.SYRIN IV ONE (16:30)
[2020-03-10] MEDS ORDERED: ONDANSETRON HCL/PF 4 MG/2 ML VIAL ONE (16:53)
[2020-03-10] MEDS ORDERED: HYDROMORPHONE 1 MG/1 ML DISP.SYRIN ONE (16:53)
--- NOTE | 2020-03-10 17:04 | NUR ---
CALLED CENTRAL SUPPLY FOR SUGGS NEEDLE.
--- NOTE | 2020-03-10 17:10 | NUR ---
SWEETBREAD TRIMMER AT BEDSIDE FOR BLOOD DRAW.
[2020-03-10 17:22] LABS: BASOPHILS # (AUTO) 0.1 /CMM (0.0-0.2); BASOPHILS % (AUTO) 0.6 % (0.0-2.0); EOSINOPHILS % (AUTO) 0.6 % (0.0-6.0); HEMATOCRIT 38 % (33-45); HEMOGLOBIN 12.3 g/dL (11.5-14.8); LYMPHOCYTES # (AUTO) 1.4 /CMM (0.8-4.8); LYMPHOCYTES % (AUTO) 16.1 % (20.0-44.0); MEAN CORPUSCULAR HGB CONC 33 g/dl (31.0-36.0); MEAN CORPUSCULAR VOLUME 97 fL (82-100); MONOCYTES # (AUTO) 0.8 /CMM (0.1-1.30); MONOCYTES % (AUTO) 9.2 % (2.0-12.0); NEUTROPHILS # (AUTO) 6.2 /CMM (1.8-8.9); NEUTROPHILS % (AUTO) 73.5 % (43.0-81.0); PLATELET COUNT (AUTO) 408 /CMM (150-450); RED BLOOD CELL COUNT(AUTO) 3.87 MIL/uL (4.0-5.2); WHITE BLOOD COUNT (AUTO) 8.4 K/uL (4.3-11.0)
[2020-03-10 17:35] LABS: CALCIUM, SERUM 7.8 mg/dL (8.5-10.1); CARBON DIOXIDE 24 mmol/L (21-32); CHLORIDE 101 mmol/L (98-107); CREATININE 0.7 mg/dL (0.6-1.3); GLUCOSE 163 mg/dL (74-106); POTASSIUM 3.3 mmol/L (3.5-5.1); SODIUM SERUM 137 mmol/L (136-145); UREA NITROGEN, BLOOD 6 mg/dL (7-18)
[2020-03-10] MEDS ORDERED: IV NS 0.9% 250 ML IV ONE ×2 (17:39→21:54)
[2020-03-10] MEDS ORDERED: IOHEXOL-300 100 ML VIAL IV ONE (17:39)
[2020-03-10 17:40] LABS: ALANINE AMINOTRANSFERASE 9 U/L (12-78); ALBUMIN 1.7 g/dL (3.4-5.0); ALKALINE PHOSPHATASE 117 U/L (46-116); ASPARTATE AMINOTRANSFERASE 19 U/L (15-37); BILIRUBIN,DIRECT 0.2 mg/dL (0.0-0.2); BILIRUBIN,TOTAL 0.4 mg/dL (0.2-1.0); LIPASE 154 U/L (73-393); TOTAL PROTEIN, SERUM 6.2 g/dL (6.4-8.2)
--- NOTE | 2020-03-10 18:36 | NUR ---
PATIENT PICKED UP BY DESK REPORTER FOR CT SCAN
--- NOTE | 2020-03-10 19:05 | NUR ---
PT AAOX4, VSS, RESPIRATIONS EVEN AND UNLABORED W/ NAD NOTED. PT CONNECTED TO THE LOGISTICS TECH AND POX. PT HAS NO MEDICAL COMPLAINTS AT THIS TIME
--- NOTE | 2020-03-10 19:34 | NUR ---
REPORT GIVEN TO ANGI SHIN FOR RANGEL
--- NOTE | 2020-03-10 20:10 | NUR ---
URINE COLLECTED AND SENT TO LAB
--- NOTE | 2020-03-10 20:40 | NUR ---
ULTRASOUND AT BEDSIDE
[2020-03-10 21:02] LABS: APPEARANCE,URINE CLEAR (CLEAR); BILIRUBIN,URINE NEGATIVE (NEGATIVE); BLOOD, URINE NEGATIVE Ery/uL (NEGATIVE); COLOR,URINE YELLOW (YELLOW); KETONES,URINE NEGATIVE (NEGATIVE); LEUKOCYTE ESTERASE ,URINE NEGATIVE (NEGATIVE); NITRITE, URINE NEGATIVE (NEGATIVE); PROTEIN,URINE NEGATIVE (NEGATIVE); UGLUCOSE NEGATIVE (NEGATIVE); UROBILINOGEN,URINE 0.2 EU/dL (0.2)
[2020-03-10] MEDS ORDERED: CT SWABBABLE VALVE TRANS SET 1 EA INFUS.SET MC ONE (21:54)
[2020-03-10] MEDS ORDERED: IOHEXOL-350 100 ML VIAL IV ONE (21:54)
--- NOTE | 2020-03-10 22:08 | NUR ---
PT TAKEN TO RADIOLOGY FOR CT
--- NOTE | 2020-03-10 23:26 | NUR ---
REPORT GIVEN TO ALEIDA DEVLIN
[2020-03-11] VITALS: BP 121/75
--- NOTE | 2020-03-11 00:11 | NUR ---
PT TRANSFERRED TO ROOM VIA ACLS PROTOCOL
--- NOTE | 2020-03-11 00:15 | NUR ---
RN NOTES RECEIVED PT. FROM ER WITH DX. OF PE/DVT/ABDOMINAL PAIN, A/OX4. AMBULATE WITH ASSIST ST ON TELE MONITOR HR-103, ADMISSION INSTRUCTION WAS GIVE, CALL LIGHT WITHIN REACH, SIDERAILSUPX2, CONTINUE TO MONITOR
[2020-03-11] MEDS: ONDANSETRON HCL/PF 4 MG/2 ML VIAL IVP PRN ×3 (00:55→20:59)
--- NOTE | 2020-03-11 00:55 | NUR ---
RN NOTES COMPLAINED OF FEELING NAUSEOUS- ZOFRAN 4 MG IV GIVEN ORDERED
[2020-03-11] MEDS ORDERED: DEXTROSE 50%-WATER 50 ML DISP.SYRIN IV PRN (01:00)
[2020-03-11] MEDS ORDERED: Z GUARD REMEDY 2 OZ OINT TP PRN (01:00)
[2020-03-11] MEDS ORDERED: ZOLPIDEM TARTRATE 5 MG TABLET PO PRN (01:00)
[2020-03-11] MEDS: IV NS 0.9% 1,000 ML IV PRN ×2 (01:19→17:24)
[2020-03-11] MEDS ORDERED: POTASSIUM CHLORIDE 20 MEQ TAB.PRT.SR PO ONE (01:30)
[2020-03-11 04:00] VITALS: BP 104/65
[2020-03-11] MEDS: MORPHINE SULFATE INJ 2 MG/ML DISP.SYRIN IV PRN ×2 (06:03→20:59)
--- NOTE | 2020-03-11 06:05 | NUR ---
RN NOTES COMPLAINED OF ABDOMINAL PAIN- MORPHINE 2 MG IV GIVEN ORDERED, V/S STABLE
--- NOTE | 2020-03-11 06:23 | NUR ---
RN NOTES SLEEPING BUT AROUSABLE, NOT IN DISTRESS, NO PAIN NOTED, MORNING CARE RENDERED, CALL LIGHT WITHIN REACH, WESTONUPX2, PT. NEEDS ATTENDED
[2020-03-11] MEDS: BLOOD SUGAR DIAGNOSTIC 1 EACH STRIP IN SCH ×4 (07:22→21:52)
[2020-03-11] MEDS ORDERED: PANTOPRAZOLE 40 MG TABLET.DR PO SCH (07:30)
[2020-03-11 08:00] VITALS: BP 121/63
[2020-03-11] MEDS: VENLAFAXINE XR 37.5 MG CAP.SR.24H PO SCH (08:40)
[2020-03-11] MEDS: DOCUSATE SODIUM 100 MG CAPSULE PO SCH ×2 (08:40→17:18)
[2020-03-11] MEDS: CLOPIDOGREL BISULFATE 75 MG TABLET PO SCH (08:40)
[2020-03-11] MEDS: FUROSEMIDE 20 MG TABLET PO SCH ×2 (08:40→17:18)
[2020-03-11] MEDS: PANTOPRAZOLE 40 MG TABLET.DR PO SCH (08:40)
[2020-03-11] MEDS: LEVETIRACETAM (250 MG) 250 MG TABLET PO SCH (08:40)
[2020-03-11] MEDS ORDERED: RIVAROXABAN 15 MG TABLET PO SCH (09:00)
[2020-03-11] MEDS ORDERED: ONDANSETRON HCL/PF 4 MG/2 ML VIAL IV STA (11:51)
--- NOTE | 2020-03-11 11:52 | NUR ---
RN NOTE THE PATIENT IS VOMITING CLEAR VOMITUS. DR SINGH IS AWARE AND NEW ORDER OF ZOFRAN 4 MG IV PUSH STAT IS RECEIVED. NOTED AND CARRIED OUT. WILL CONTINUE TO MONITOR.
--- NOTE | 2020-03-11 12:38 | NUR ---
RN NOTE BLOOD SUGAR IS 155, HOWEVER, THE PATIENT DOES NOT WANT TO EAT OR DRINK ANYTHING FOR LUNCH. SO, SLIDING SCALE INSULIN IS HELD.
[2020-03-11 16:00] VITALS: BP 115/65
[2020-03-11] MEDS: ENOXAPARIN SODIUM 100 MG/ML DISP.SYRIN SQ SCH (17:19)
--- NOTE | 2020-03-11 17:38 | NUR ---
RN NOTE Dr Sterling is made aware that the patient uses cpap at night with setting of 10 (stated by the patient). Received an order of "may use cpap at night with setting of 10". Noted and carried out. Addendum: 03/11/20 at 1741 by LIZETH SIMS RN RN NOTE PER CHARGE NURSE AURELIO ALMONTE IS NOT AVAILABLE TODAY. SO, WILL ENDORSE TO UPCOMING SHIFT TO FOLLOW UP WITH SUZY Thursday.
--- NOTE | 2020-03-11 18:36 | NUR ---
RN NOTE THE PATIENT IS ALERT AND ORIENTED X4. IN ROOM AIR AND SATURATION IS AT 94%. DENIES SOB. RESPIRATION EVEN AND UNLABORED. DENIES PAIN. RAC G 20 PATENT AND NS INFUSING AT 75ML/HR. EXTERNAL TELE BOX READING IS SINUS TACHYCARDIA 102. BED LOW AND LOCKED. SIDE RAILS UP X3. CALL LIGHT WITHIN REACH. WILL ENDORSE TO CLUTCH MECHANIC.
--- NOTE | 2020-03-11 19:58 | NUR ---
RN NOTES RECEIVED PT. AWAKE ON BED, A/OX4, AMBULATORY, ST ON TELE MONITOR HR-103, NOT IN DISTRESS, DENIES PAIN, BED IN LOCKED POSITION, CALL LIGHT WITHIN REACH, SIDERAILSUPX2, CONTINUE TO MONITOR
[2020-03-11 20:38] VITALS: BP 102/64
[2020-03-11] MEDS ORDERED: ENOXAPARIN SODIUM 40 MG/0.4 ML DISP.SYRIN SQ SCH (21:00)
--- NOTE | 2020-03-11 21:06 | NUR ---
RN NOTES COMPLAINED OF NAUSEA AND VOMITING AND ABDOMINAL PAIN- ZOFRAN 4MG IV GIVEN FOR NAUSEA AND VOMITING AND MORPHINE 2 MG IV GIVEN FOR ABDOMINAL PAIN, V/S STABLE
[2020-03-11] MEDS: POLYETHYLENE GLYCOL 3350 17 GM POWD.PACK PO SCH ×2 (21:51→22:00)
[2020-03-11] MEDS: ATORVASTATIN 10 MG TABLET PO SCH (21:52)
[2020-03-12] VITALS: BP 107/67
[2020-03-12 04:32] VITALS: BP 104/66
[2020-03-12] MEDS: IV NS 0.9% 1,000 ML IV PRN (05:40)
[2020-03-12] MEDS: ENOXAPARIN SODIUM 100 MG/ML DISP.SYRIN SQ SCH ×2 (05:43→17:13)
--- NOTE | 2020-03-12 06:36 | NUR ---
RN NOTES AWAKE, NOT IN DISTRESS, DENIES PAIN, NO SOB, MORNING CARE RENDERED, CALL LIGHT WITHIN REACH, SIDERAILSUPX2 PT. NEEDS ATTENDED
--- NOTE | 2020-03-12 07:25 | NUR ---
CONTINUOUS DRIER HELPER NOTES RECEIVED PATIENT IN BED, ALERT AND AWAKE ORIENTED X4. ON ROOM AIR WITH SPO2 OF 99%. NO SOB. DENIES ANY C/O PAIN NOR DISCOMFORT AT THIS TIME. ON TELE MONITORING ST:111. AMBULATORY WITH ASSIST WITH STEADY GAIT. RIGHT CHEST WALL PORT-A-CATH IN PLACE WITH DRESSING INTACT. REMAINS ON NPO FOR HIDA SCAN. BED IN LOWEST POSITION ,LOCKED. BED ALARM ON. CALL LIGHT WITHIN REACH. FREQUENT VISUAL CHECK DONE.
[2020-03-12] MEDS: PANTOPRAZOLE 40 MG TABLET.DR PO SCH (07:30)
[2020-03-12] MEDS: BLOOD SUGAR DIAGNOSTIC 1 EACH STRIP IN SCH ×4 (07:33→21:30)
[2020-03-12 08:00] VITALS: BP 110/67
[2020-03-12] MEDS: DOCUSATE SODIUM 100 MG CAPSULE PO SCH ×2 (08:43→16:13)
[2020-03-12] MEDS: VENLAFAXINE XR 37.5 MG CAP.SR.24H PO SCH (08:43)
[2020-03-12] MEDS: FUROSEMIDE 20 MG TABLET PO SCH ×2 (08:43→16:13)
[2020-03-12] MEDS: CLOPIDOGREL BISULFATE 75 MG TABLET PO SCH (08:43)
[2020-03-12] MEDS: LEVETIRACETAM (250 MG) 250 MG TABLET PO SCH (08:43)
--- NOTE | 2020-03-12 08:43 | NUR ---
ACTIVITIES OFFICER NOTES MEDS HELD. PATIENT SCHEDULED FOR HIDA SCAN,, NPO DIAGNOSIS.
[2020-03-12] MEDS: ONDANSETRON HCL/PF 4 MG/2 ML VIAL IVP PRN (09:28)
--- NOTE | 2020-03-12 10:45 | NUR ---
FIELD CAPTAIN NOTES PATIENT LEFT UNIT, LEFT FOR HIDA SCAN.
[2020-03-12 12:00] VITALS: BP 117/71
[2020-03-12] MEDS: INSULIN REGULAR, HUMAN 100 UNIT/ML 3 ML VIAL SQ PRN ×3 (12:34→21:52)
[2020-03-12 13:27] LABS: BASOPHILS # (AUTO) 0.1 /CMM (0.0-0.2); BASOPHILS % (AUTO) 1.2 % (0.0-2.0); HEMATOCRIT 35 % (33-45); HEMOGLOBIN 11.3 g/dL (11.5-14.8); LYMPHOCYTES # (AUTO) 1.4 /CMM (0.8-4.8); LYMPHOCYTES % (AUTO) 18.4 % (20.0-44.0); MEAN CORPUSCULAR HGB CONC 33 g/dl (31.0-36.0); MEAN CORPUSCULAR VOLUME 98 fL (82-100); MONOCYTES # (AUTO) 0.6 /CMM (0.1-1.30); MONOCYTES % (AUTO) 8.6 % (2.0-12.0); NEUTROPHILS # (AUTO) 5.3 /CMM (1.8-8.9); NEUTROPHILS % (AUTO) 70.8 % (43.0-81.0); PLATELET COUNT (AUTO) 351 /CMM (150-450); RED BLOOD CELL COUNT(AUTO) 3.58 MIL/uL (4.0-5.2); WHITE BLOOD COUNT (AUTO) 7.5 K/uL (4.3-11.0)
[2020-03-12 13:40] LABS: ALANINE AMINOTRANSFERASE 7 U/L (12-78); ALBUMIN 1.5 g/dL (3.4-5.0); ALKALINE PHOSPHATASE 98 U/L (46-116); ASPARTATE AMINOTRANSFERASE 13 U/L (15-37); BILIRUBIN,TOTAL 0.3 mg/dL (0.2-1.0); CALCIUM, SERUM 7.3 mg/dL (8.5-10.1); CARBON DIOXIDE 21 mmol/L (21-32); CHLORIDE 102 mmol/L (98-107); CREATININE 0.6 mg/dL (0.6-1.3); GLUCOSE 103 mg/dL (74-106); POTASSIUM 3.2 mmol/L (3.5-5.1); SODIUM SERUM 136 mmol/L (136-145); TOTAL PROTEIN, SERUM 5.8 g/dL (6.4-8.2); UREA NITROGEN, BLOOD 4 mg/dL (7-18)
[2020-03-12 13:48] LABS: MAGNESIUM 1.1 mg/dL (1.8-2.4)
[2020-03-12 14:12] LABS: CHOLESTEROL 76 mg/dL (<200); HDL CHOLESTEROL < 10 mg/dL (40-60); LDL 42 mg/dL (0-99); THYROID STIMULATING HORMONE 1.162 uIU/mL (0.358-3.74); TRIGLYCERIDES 198 mg/dL (30-150)
[2020-03-12] MEDS: POTASSIUM CHLORIDE 20 MEQ TAB.PRT.SR PO SCH ×2 (14:49→16:13)
[2020-03-12] MEDS: Magnesium 1GM/D5W 100ML PREMIX 100 ML IV SCH ×2 (14:49→16:11)
--- NOTE | 2020-03-12 15:00 | NUR ---
PASSPORT SUPPORT MANAGER NOTES PATIENT OFF UNIT, LEFT FOR CT SCAN.
--- NOTE | 2020-03-12 15:31 | NUR ---
GOVERNMENT SERVICES PROFESSIONAL NOTES PATIENT RETURNED TO UNIT FROM CT SCAN.
[2020-03-12 16:00] VITALS: BP 98/58
--- NOTE | 2020-03-12 17:17 | NUR ---
FIRMWARE SOFTWARE VERIFICATION ENGINEER NOTES BS 147MG/DL, HELD INSULIN D/T POOR PO INTAKE.
--- NOTE | 2020-03-12 19:06 | NUR ---
KETTLEMAN NOTES RECEIVED PATIENT IN BED, ALERT AND AWAKE ORIENTED X4. ON ROOM AIR WITH SPO2 OF 99%. NO S/S OF RESPIRATORY DISTRESS. DENIES ANY C/O PAIN NOR DISCOMFORT AT THIS TIME. REMAIN ON TELE MONITORING ST:108. RIGHT CHEST WALL PORT-A-CATH IN PLACE WITH DRESSING INTACT. BED IN LOWEST POSITION ,LOCKED. BED ALARM ON. CALL LIGHT WITHIN REACH. IN NO APPARENT DISTRESS.
[2020-03-12 20:04] VITALS: BP 113/58
[2020-03-12] MEDS: POLYETHYLENE GLYCOL 3350 17 GM POWD.PACK PO SCH (21:30)
[2020-03-12] MEDS: ATORVASTATIN 10 MG TABLET PO SCH (21:30)
[2020-03-12] MEDS ORDERED: LEVETIRACETAM (250 MG) 250 MG TABLET PO SCH (22:00)
[2020-03-12] MEDS ORDERED: VENLAFAXINE XR 37.5 MG CAP.SR.24H PO SCH (22:00)
[2020-03-13] VITALS: BP 112/57
--- NOTE | 2020-03-13 03:56 | NUR ---
request for records as requested by dr. mason with authorization faxed to [facility] phone: [phone] fax: [phone]
[2020-03-13 04:00] VITALS: BP 138/81
[2020-03-13] MEDS: ENOXAPARIN SODIUM 100 MG/ML DISP.SYRIN SQ SCH ×2 (05:50→17:16)
[2020-03-13] MEDS: BLOOD SUGAR DIAGNOSTIC 1 EACH STRIP IN SCH ×4 (05:50→22:20)
[2020-03-13 06:28] LABS: BASOPHILS % (AUTO) 0.6 % (0.0-2.0); EOSINOPHILS % (AUTO) 1.7 % (0.0-6.0); HEMATOCRIT 35 % (33-45); HEMOGLOBIN 11.2 g/dL (11.5-14.8); LYMPHOCYTES # (AUTO) 1.7 /CMM (0.8-4.8); LYMPHOCYTES % (AUTO) 21.5 % (20.0-44.0); MEAN CORPUSCULAR HGB CONC 32 g/dl (31.0-36.0); MEAN CORPUSCULAR VOLUME 97 fL (82-100); MONOCYTES # (AUTO) 0.8 /CMM (0.1-1.30); MONOCYTES % (AUTO) 10.4 % (2.0-12.0); NEUTROPHILS # (AUTO) 5.1 /CMM (1.8-8.9); NEUTROPHILS % (AUTO) 65.8 % (43.0-81.0); PLATELET COUNT (AUTO) 401 /CMM (150-450); RED BLOOD CELL COUNT(AUTO) 3.56 MIL/uL (4.0-5.2); WHITE BLOOD COUNT (AUTO) 7.7 K/uL (4.3-11.0)
--- NOTE | 2020-03-13 06:58 | NUR ---
DARKROOM WORKER CLOSING NOTE PATIENT IN BED, ALERT AND AWAKE ORIENTED X4. ON ROOM AIR . NO S/S OF RESPIRATORY DISTRESS RESP EVEN AND UNLABORED. DENIES ANY C/O PAIN NOR DISCOMFORT AT THIS TIME. REMAIN ON TELE MONITORING RIGHT CHEST WALL PORT-A-CATH IN PLACE WITH DRESSING INTACT. BED IN LOWEST POSITION ,LOCKED. BED ALARM ON. RECORDS REQUESTED BY FAX TO [facility] LAST NIGHT. CALL LIGHT WITHIN REACH PT VERBALIZED UNDERSTANDING TO CALL FOR ASSISTANCE IF NEEDED.
[2020-03-13 07:08] LABS: CALCIUM, SERUM 7.5 mg/dL (8.5-10.1); CREATININE 0.5 mg/dL (0.6-1.3); PHOSPHORUS 2.3 mg/dL (2.5-4.9); POTASSIUM 3.4 mmol/L (3.5-5.1)
[2020-03-13 07:26] LABS: MAGNESIUM 1.5 mg/dL (1.8-2.4)
[2020-03-13 08:00] VITALS: BP 114/65
--- NOTE | 2020-03-13 08:00 | NUR ---
RN NOTES RECEIVED PATIENT IN THE BED A/O X3, ON O2 2L NC. PATIENT TELE ST-110, NO ACUTE RESPIRATORY DISTRESS, V/S TAKEN , ADMINISTERED SCHEDULED MEDICATION, PATIENT WAS COMPLAINING OF GENERALIZED PAIN 5/10 PAIN SCALE, AND NAUSEA, REFUSED BREAKFAST. IV ACCESS ON RIGHT AC AREA INTACT, EDEMA ON RIGHT HAND. ELEVATED ARM USING PILLOW, NEEDS ATTENDED AND ANTICIPATED, CALL LIGHT WITHIN TO REACH. SAFETY PRECAUTION MAINTAINED ALL THE TIME.
[2020-03-13] MEDS: ONDANSETRON HCL/PF 4 MG/2 ML VIAL IVP PRN ×3 (08:34→22:15)
[2020-03-13] MEDS: DOCUSATE SODIUM 100 MG CAPSULE PO SCH ×2 (08:34→17:20)
[2020-03-13] MEDS: Magnesium 1GM/D5W 100ML PREMIX 100 ML IV SCH ×7 (08:34→17:05)
--- NOTE | 2020-03-13 08:34 | NUR ---
RN NOTES ADMINISTERED ZOFRAN 4 MG /ML IV PUSH FOR NAUSEA. INFUSING MG 100 ML ON RIGHT AC AREA INTACT.
[2020-03-13] MEDS: FUROSEMIDE 20 MG TABLET PO SCH ×2 (08:35→17:20)
[2020-03-13] MEDS: CLOPIDOGREL BISULFATE 75 MG TABLET PO SCH (08:35)
[2020-03-13] MEDS: VENLAFAXINE XR 37.5 MG CAP.SR.24H PO SCH (08:35)
[2020-03-13] MEDS: PANTOPRAZOLE 40 MG TABLET.DR PO SCH (08:36)
[2020-03-13] MEDS: LEVETIRACETAM (250 MG) 250 MG TABLET PO SCH ×2 (08:36→21:43)
[2020-03-13] MEDS: ACETAMINOPHEN 325 MG TABLET PO PRN ×2 (08:43→23:06)
--- NOTE | 2020-03-13 08:43 | NUR ---
RN NOTES ADMINISTERED TYLENOL 650 MG PO PRN GENERALIZED PAIN PER PATIENT REQUEST.
--- NOTE | 2020-03-13 11:53 | NUR ---
RN NOTES PATIENT WITH PT AT THIS TIME FOR EVALUATION, WALKING IN THE HALLWAY USING WALKER, STABLE GAIT, BS-122 MG/DL, SAFETY PRECAUTION MAINTAINED ALL THE TIME.
[2020-03-13 12:00] VITALS: BP 117/61
[2020-03-13] MEDS: POTASSIUM PHOSPHATE MM 7.5 MMOL in IV NS 0.9% 100 ML IV SCH ×2 (12:21→17:34)
--- NOTE | 2020-03-13 12:22 | NUR ---
RN NOTES BS-122 MG/DL, REFUSED LUNCH. PATIENT STATE "I DO NOT HAVE A APPETITE". CALL LIGHT WITHIN TO REACH. CONTINUED MONITORING.
--- NOTE | 2020-03-13 15:41 | NUR ---
RN NOTES ADMINISTERED ZOFRAN 4 MG/ML IV PUSH FOR NAUSEA.
[2020-03-13 16:00] VITALS: BP 94/66
--- NOTE | 2020-03-13 17:30 | NUR ---
RN NOTERS SPOKEN WITH SACK CLEANER Dr LLANES ABOUT PATELLATE LEVEL. PER MD WILL PUT ORDERS IN THE COMPUTER. Addendum: 03/13/20 at 1737 by YANA MUNOZ RN [id number] ABOVE NOTES IS WRONG ENTRY.
--- NOTE | 2020-03-13 18:15 | NUR ---
RN NOTES BS-161 MG/DL NO COVERAGE GIVEN BECAUSE OF REFUSED DINNER, V/S WNL, ADMINISTERED SCHEDULED MEDICATION, INFUSING POTASSIUM PHOSPHATE AT 34.16 ML/HR ON RIGHT AC AREA INTACT. PATIENT SIGN CONSENT FORM FOR EJD SCHEDULED TOMORROW. PATIENT AMBULATORY USING BATHROOM. CALL LIGHT WITHIN TO REACH. SAFETY PRECAUTION MAINTAINED ALL THE TIME. ENDORSED ONCOMING NURSE FOLLOW PLAN OF CARE.
--- NOTE | 2020-03-13 19:30 | NUR ---
tele pony edger initial notes received a report from am nurse and seen pt in bed awake and alert not in any discomfort or any distress noted. she still on Potassium infusing at this time. no redness noted. pt aware of her procedure jose signed consent done. Sinus Tach 107 per front desk monitor. kept her comfortable at all times. place call light at reach. will continue monitoring.
[2020-03-13 20:00] VITALS: BP 121/66
[2020-03-13] MEDS: ATORVASTATIN 10 MG TABLET PO SCH (21:43)
[2020-03-13] MEDS: POLYETHYLENE GLYCOL 3350 17 GM POWD.PACK PO SCH (21:44)
[2020-03-13] MEDS: INSULIN REGULAR, HUMAN 100 UNIT/ML 3 ML VIAL SQ PRN (22:20)
--- NOTE | 2020-03-13 23:00 | NUR ---
hollow ware maker notes pt its been refusing to have blood draw for MG level even i explained to her why she needs it. no signs of any distress at this time. N/v relieved after zofran given, Tylenol given per pt requested for headache. will continue monitoring.
--- NOTE | 2020-03-13 23:15 | NUR ---
wellness health coach notes hold lovenox and its ok to draw blood for Mg level in am per Dr Gaitan ordered.
[2020-03-14] VITALS (7 sets, daily range): BP systolic 100–136; BP diastolic 50–70
--- NOTE | 2020-03-14 00:47 | NUR ---
TELE ASSOCIATE JUVENILE COURT JUDGE NOTES PT SLEEPING COMFORTABLY IN BED WITHOUT ANY DISTRESS OR ANY DISCOMFORT NOTED. TELE SINUS TACH 102 PER MONITOR. KEPT HER WARM AND COMFORTABLE AT ALL TIMES. PLACE CALL LIGHT AT REACH. VITAL SIGNS WITHIN NORMAL LIMIT.
[2020-03-14] MEDS: ENOXAPARIN SODIUM 100 MG/ML DISP.SYRIN SQ SCH ×2 (06:00→17:14)
[2020-03-14 07:18] LABS: CALCIUM, SERUM 7.7 mg/dL (8.5-10.1); CREATININE 0.7 mg/dL (0.6-1.3); MAGNESIUM 1.9 mg/dL (1.8-2.4); POTASSIUM 3.8 mmol/L (3.5-5.1)
[2020-03-14] MEDS: BLOOD SUGAR DIAGNOSTIC 1 EACH STRIP IN SCH ×4 (07:28→22:52)
--- NOTE | 2020-03-14 07:30 | NUR ---
FIREWORKS ASSEMBLER NOTES PT IN BED, ASLEEP, EASY TO AROUSE, ALERT AND ORIENTED, NO COMPLAINT OF PAIN OR ANY DISCOMFORT, RESPIRATIONS NORMAL, CALL LIGHT WITHIN REACH, PT INFORMED OF PLAN OF CARE, VERBALIZED UNDERSTANDING, KEPT SOIL CHEMIST BED.
--- NOTE | 2020-03-14 07:30 | NUR ---
tele patcher wood welder closing notes pt bakc to bed after using the rest room. no signs of any acute distress noted. no n/v noted after zofran given . all due meds given and all needs met. kept her warm and comfortable at all times. Blood sugar checked done 134, no insulin due at this time because pt for EGD today. no signs of hypo glycemia noted. will endorse to am nurse for continuity of care. call light at reach.
[2020-03-14 08:07] LABS: CANCER AG, 15-3 12.7 U/mL (0.0-25.0)
[2020-03-14] MEDS: LEVETIRACETAM (250 MG) 250 MG TABLET PO SCH ×2 (08:19→21:58)
[2020-03-14] MEDS: VENLAFAXINE XR 37.5 MG CAP.SR.24H PO SCH (08:19)
[2020-03-14] MEDS: PANTOPRAZOLE 40 MG TABLET.DR PO SCH (08:20)
[2020-03-14] MEDS: DOCUSATE SODIUM 100 MG CAPSULE PO SCH ×2 (08:20→17:10)
[2020-03-14] MEDS: FUROSEMIDE 20 MG TABLET PO SCH ×2 (08:20→17:10)
[2020-03-14] MEDS: CLOPIDOGREL BISULFATE 75 MG TABLET PO SCH (08:20)
--- NOTE | 2020-03-14 11:57 | NUR ---
PROCESS CHECKER NOTES PT IN BED, RESTING, NO COMPLAINT OF PAIN OR ANY DISCOMFORT, BS CHECKED, NO S/S OF HYPO/HYPERGLYCEMIA NOTED, KEPT NPO.
[2020-03-14] MEDS ORDERED: FAMOTIDINE/PF INJ 20 MG/2 ML VIAL IV ONE (12:55)
[2020-03-14] MEDS ORDERED: ANESTHESIA TRAY IN PYXIS 1 EA TRAY MC ONE (12:57)
--- NOTE | 2020-03-14 14:07 | NUR ---
MARKETING SERVICES MANAGER NOTES RECEIVED PT FROM O.R. STAFF VIA BED, PT IS AWAKE, ALERT AND ORIENTED, NO COMPLAINT OF PAIN OR ANY DISCOMFORT AT THIS TIME, BREATHING PATTERN NORMAL, VITALS TAKEN AND RECORDED, CALL LIGHT WITHIN REACH.
--- NOTE | 2020-03-14 18:58 | NUR ---
ACCOUNT SERVICE ASSOCIATE NOTES PT IN BED, AWAKE, ALERT AND ORIENTED, ATE DINNER, TRANSFERRED PT TO [facility], NO COMPLAINT AT THIS TIME, PM MEDS GIVEN, NEEDS ATTENDED.
--- NOTE | 2020-03-14 19:34 | NUR ---
LEGAL SUPPORT MANAGER OPENING NOTES PATIENT AWAKE IN BED. A/OX4. ON RA; PATIENT DENIES SOB; BREATHING IS EVEN AND UNLABORED. NO C/O PAIN AT THIS TIME. TELE MONITOR READING SINUS TACH, HEART RATE 114. IV PRESENT ON RIGHT AC, SIZE 20, INTACT & PATENT, HEP LOCKED. RIGHT CHEST WALL PORTACATH PRESENT; DRESSING INTACT. SAFETY MEASURES IN PLACE AND PATIENT'S NEEDS MET. BED LOCKED, SIDE RAILS X2, CALL LIGHT WITHIN REACH. WILL CONTINUE TO MONITOR.
[2020-03-14] MEDS: ONDANSETRON HCL/PF 4 MG/2 ML VIAL IVP PRN (20:15)
[2020-03-14] MEDS: ATORVASTATIN 10 MG TABLET PO SCH (21:58)
[2020-03-14] MEDS: POLYETHYLENE GLYCOL 3350 17 GM POWD.PACK PO SCH (22:00)
[2020-03-15] VITALS: BP 115/69
[2020-03-15 04:00] VITALS: BP 115/65
[2020-03-15] MEDS: PANTOPRAZOLE 40 MG TABLET.DR PO SCH (06:36)
[2020-03-15] MEDS: ENOXAPARIN SODIUM 100 MG/ML DISP.SYRIN SQ SCH (06:36)
[2020-03-15] MEDS: BLOOD SUGAR DIAGNOSTIC 1 EACH STRIP IN SCH ×2 (06:42→11:39)
--- NOTE | 2020-03-15 07:16 | NUR ---
MAINTENANCE PLANNER CLOSING NOTES PATIENT SLEEPING, EASY TO AWAKEN. A/OX4. ON RA; NO S/S OF SOB OR C/O PAIN. TELE MONITOR READING SINUS TACH, HEART RATE 109. IV PRESENT ON RIGHT AC, SIZE 20, INTACT & PATENT, HEP LOCKED. RIGHT CHEST WALL PORTACATH PRESENT; DRESSING INTACT. SAFETY MEASURES IN PLACE AND PATIENT'S NEEDS MET. BED LOCKED, SIDE RAILS X2, CALL LIGHT WITHIN REACH. ENDORSED TO DAY SHIFT RN PLAN OF CARE.
--- NOTE | 2020-03-15 07:45 | NUR ---
Tele/RN - Assessment Patient in bed, awake, A/O x 4, no c/o n/v, denies abdominal pain, no abdominal tenderness on palpitation, no apparent distress, no c/o shortness of breath, afebrile, tele reads ST. Saline lock on the RAC is patent, intact, with no signs of infiltration. Fall precautions maintained. Discharge planning today. Will continue with current medical management.
[2020-03-15 07:59] LABS: IRON, SERUM 76 ug/dl (50-175); TOTAL IRON BINDING CAPACITY 144 ug/dl (250-450)
[2020-03-15 08:00] VITALS: BP 101/53
[2020-03-15] MEDS: LEVETIRACETAM (250 MG) 250 MG TABLET PO SCH (08:11)
[2020-03-15] MEDS: DOCUSATE SODIUM 100 MG CAPSULE PO SCH (08:11)
[2020-03-15] MEDS: VENLAFAXINE XR 37.5 MG CAP.SR.24H PO SCH (08:11)
[2020-03-15] MEDS: CLOPIDOGREL BISULFATE 75 MG TABLET PO SCH (08:11)
[2020-03-15] MEDS: FUROSEMIDE 20 MG TABLET PO SCH (08:11)
[2020-03-15 08:15] LABS: FERRITIN 237 ng/mL (8-388)
[2020-03-15] MEDS: ACETAMINOPHEN 325 MG TABLET PO PRN (09:30)
[2020-03-15] MEDS ORDERED: RIVA15TA PO (10:29)
--- NOTE | 2020-03-15 10:30 | NUR ---
Tele/RN - Notes Patient resting comfortably, no c/o chest pain, denies shortness of breath, stable on room air. Will continue to monitor closely.
[2020-03-15 12:00] VITALS: BP 106/60
[2020-03-15] MEDS: ONDANSETRON HCL/PF 4 MG/2 ML VIAL IVP PRN (14:46)
--- NOTE | 2020-03-15 15:30 | NUR ---
Tele/RN - Discharge Patient is alert and oriented X 4, discharged home with home health ([facility]) in stable condition, remain afebrile, denies abdominal pain, no c/o chest pain, not in any form of distress, ambulates with assistance, no seizure activity noted. Reviewed discharge instructions with patient and she verbalized full understanding of all teachings including medications and follow-up care with PCP as scheduled. Patient was advised to seek immediate medical attention for worsening symptoms, chest pain, shortness of breath, palpitations, abdominal pain/distention, intractable nausea and vomiting, diarrhea, weakness, loss of consciousness, neurological deficit, or any other emergent concerns. All belongings with patient and she deny any missing items. Patient refused photos to be taken of skin, sacral redness improved, no open wounds noted. Saline lock removed on the RAC with catheter tip intact, no redness, no swelling noted at the site. Discharge paperwork signed and copies were given per protocol. Patient left the unit at 15:20 via ambulance.
== END 2020-03-15 15:30 | disposition home health service (06) | DRG 299 ==
LOC: ER 16:16 → TELE 23:20
PROVIDERS: ADMIT Nurse Practitioner Acute Care; ATTEND Internal Medicine
PROC: 0DB68ZX Excision of Stomach, Via Natural or Artificial Opening Endoscopic, Diagnostic (ICD-10-PCS; principal; 2020-03-14)
DX: I82.412 Acute embolism and thrombosis of left femoral vein (principal); I26.99 Other pulmonary embolism without acute cor pulmonale; E43 Unspecified severe protein-calorie malnutrition; D68.69 Other thrombophilia; C79.31 Secondary malignant neoplasm of brain; E66.2 Morbid (severe) obesity with alveolar hypoventilation; C50.919 Malignant neoplasm of unspecified site of unspecified female breast; K76.0 Fatty (change of) liver, not elsewhere classified; K80.20 Calculus of gallbladder without cholecystitis without obstruction; E78.5 Hyperlipidemia, unspecified; R13.10 Dysphagia, unspecified; E87.6 Hypokalemia; I10 Essential (primary) hypertension; K29.70 Gastritis, unspecified, without bleeding; Z87.440 Personal history of urinary (tract) infections; Z90.710 Acquired absence of both cervix and uterus; E88.09 Other disorders of plasma-protein metabolism, not elsewhere classified; K57.30 Diverticulosis of large intestine without perforation or abscess without bleeding; Z79.01 Long term (current) use of anticoagulants; Z79.899 Other long term (current) drug therapy; Z68.38 Body mass index [BMI] 38.0-38.9, adult; F32.9 Major depressive disorder, single episode, unspecified; K44.9 Diaphragmatic hernia without obstruction or gangrene; E11.9 Type 2 diabetes mellitus without complications; Z79.84 Long term (current) use of oral hypoglycemic drugs; I82.422 Acute embolism and thrombosis of left iliac vein
CPT/HCPCS: 36415; 70450-TC; 71045-TC; 78226; 80048-TC; 80053-TC; 80061-TC; 80076-TC; 81000-TC; 82378; 82728-TC; 82962-TC; 83540-TC; 83690-TC; 83735-TC; 84100-TC; 84443-TC; 84484-TC; 85025-TC; 85385-TC; 85610-TC; 85730-TC; 86300; 87081-TC; 88305-TC; 88312-TC; 88313-TC; 93307-TC; 93971-TC; 97116-TC; 97530-TC; A9537; C9803; G0378; J1170; J1650; J1815; J2270; J2405; J2704; J2765; J3475; J3490; J7030; J7050; Q9967

== ENCOUNTER 2020-05-26 13:09 | Emergency (ER) | payer MEDICARE, BC ==
[~2020-05-26] VITALS: Ht 170.2 cm; Wt 80.3 kg
[~2020-05-26 13:09] MED LIST changes: +RIVA15TA PO; -SULF1TAB48 PO
[2020-05-26 13:17] VITALS: BP 126/80
--- NOTE | 2020-05-26 13:57 | NUR ---
PT REFUSES ALL DIAGNOSTICS AND TESTS PER DR BOYLE. PT IS A/OX3. SPOKE WITH PT'S DAUGHTER BEST ON THE PHONE, UPDATED ON PT STATUS.
--- NOTE | 2020-05-26 14:07 | NUR ---
PT'S DAUGHTER WILL ZINC SKIMMER THE PT, SHE IS ON HER WAY
--- NOTE | 2020-05-26 15:10 | NUR ---
Patient discharged to home in stable condition. Written and verbal after care instructions given. Patient and daughter verbalize understanding of instruction.
--- NOTE | 2020-05-26 15:11 | NUR ---
refused dc VS
== END 2020-05-26 15:11 | disposition home or self-care (01) ==
LOC: ER 13:11
DX: C50.919 Malignant neoplasm of unspecified site of unspecified female breast (principal); C79.31 Secondary malignant neoplasm of brain; R11.0 Nausea; R51.9 Headache, unspecified; I10 Essential (primary) hypertension; E11.9 Type 2 diabetes mellitus without complications; Z98.890 Other specified postprocedural states; Z88.6 Allergy status to analgesic agent; Z88.8 Allergy status to other drugs, medicaments and biological substances; Z79.899 Other long term (current) drug therapy; Z79.84 Long term (current) use of oral hypoglycemic drugs